=== PATIENT | male | born 1985 ===

== ENCOUNTER 2024-10-15 21:52 | Emergency (ER) | payer OTHER, SELFPAY ==
--- OUTSIDE RECORDS SUMMARY | 2024-10-11 12:10 | XMS_ITS | Encounter Summary ---
Author Organization [facility] Address [address] [place] [address] Care Team Providers Care Performance Consultant Name Role Phone Ezio Busby MD Primary Care Provider [phone] Reason for Visit * Reason Comments BACK PAIN Left lower back/ SI joint pain. No numbness or tinglingNo injury, has been bothersome for the past week Encounter Details Date Type Department Care Team (Late st Contact Info) Description 10/11/2024 12:10 PM CDT Office Visit [facility] [address] [facility] [address] [place], [place] [id number] Shan Stoddard, DO [address] [place] [address] Lumbar strain, initial encounter (Primary Dx); Chronic left-sided low back pain without sciatica Social History Tobacco Use Types Packs/Day Years Used Date Smoking Tobacco: Former Smokeless Tobacco: Former Comments:smoked one year in college Alcohol Use Standard Drinks/Week Comments Yes 3 (1 standard drink = 0.6 oz pur e alcohol) PHQ-2 Answer Date Recorded PHQ-2 Score 3 03/02/2024 Financial Resource Strain Answer Date R ecorded Is it hard for you to pay fo r the very basics like food, housing, medical care or heating? No 04/16/2023 Food Insecurity Answer Date Recorded Does your food run out before you have the money to buy more? No 04/16/2023 Transportation Needs Answer Date Record ed Does a lack of transportatio n keep you from your medical appointments or from getting your medications? 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 [employer] Not on file Not on fi le Not on file documented as of this encounter Last Filed Vital Signs Vital Sign Reading Time Taken Comments Blood Pressure - - Pulse - - Temperature 36.7 C (98.1 F) 10/11/2024 12:31 PM CDT Respiratory Rate - - Oxygen Saturation - - Inhaled Oxygen Concentration - - Weight 75.8 kg (167 lb) 10/11/2024 12:31 PM CDT Height 175.3 cm (5' 9) 10/11/2024 12:31 PM CDT Body Mass Index 24.66 10/11/2024 12:31 PM CDT documented in this encounter Patient Instructions * Patient Instructions* Alma Delia Spears, ATC - 10/11/2024 12:10 PM CDT Thank you for choosing [facility] for your health care visit today. Shan Stoddard, Imaging Project Manager Process Development: [facility] [place] [address]. Call to schedule. Medication Requests: Prescriptions are filled on Weekdays before 3:00PM For all medication refills: Request a refill using MyChart or contact your Pharmacy Paperwork Requests: FMLA or disability paperwork can be faxed to: [phone] Please allow 7-10 business days for completion of all paperwork. [facility] Worker's Compensation Services: E-mail Address: What is Know Your Cost? Know Your Cost is a service for patients and patient/members to call and receive personalized cost information and estimates across our care group. The phone number is (COST) Friday - Friday 8 AM to 5 PM To request copies of your medical records, call: [phone] (option 4) Diagnosis: Encounter Diagnosis Name Primary? Lumbar strain, initial encounter Yes Plan: Follow Up: As needed if symptoms are not improving or worsen. Medications: Over the Counter Medications: Acetaminophen (Tylenol) Ibuprofen (Motrin) taken per bottle instructions unless specified by physician. RICE: - Utilize ice over the injured area (ice bag or bag of frozen vegetables) several times per day for up to 20 minutes at a time. Be sure to place a cold wet wash cloth or towel between the ice and your skin. - Avoid activities that cause pain. - Heat If you have any questions regarding your visit or next steps, please contact us at [phone]. documented in this encounter Progress Notes * Shan Stoddard DO - 10/11/2024 12:10 PM CDT Acute Injury Clinic Progress Note Date of visit: 10/11/2024 Chief Complaint Chief Complaint Patient presents with BACK PAIN Left lower back/ SI joint pain. No numbness or tingling No injury, has been bothersome for the past week History of Present Illness Cristi Sher is a 39 y.o. male that presents today for evaluation of BACK PAIN (Left lower back/ SIjoint pain. No numbness or tingling/No injury, has been bothersome for the past week) Patient presents with left low back and SI joint pain for the past week. He does have a history of episodic lumbar back pain. Patient denies any numbness or tingling or any radiation of pain. The patient denies any new acute injury. Patient denies any bowel or bladder incontinence or any saddle anesthesia. PMHx, medications, allergies, reviewed in Epic. Exam Temp 36.7 ??C (98.1 ??F) (Oral) Ht 1.753 m (5' 9) Wt 75.8 kg (167 lb) BMI 24.66 kg/m?? General/ Constitutional: Well nourished, well developed, no apparent distress Respiratory: Normal respirations, no retractions Neurological: Oriented to person, place, and time Psychological: Normal mood and affect Musculoskeletal: Back Exam Tenderness The patient is experiencing tenderness in the sacroiliac and lumbar. Range of Motion The patient has normal back ROM. Muscle Strength The patient has normal back strength. Tests Straight leg raise left: negative Reflexes Patellar: normal Achilles: normal Other Toe walk: normal Heel walk: normal Sensation: normal Gait: normal Imaging No radiographs obtained today. Assessment/Plan 1. Lumbar strain, initial encounter - methylPREDNISolone (MEDROL 21 TABLET DOSEPACK) 4 MG tablet; Take as directed. Dispense: 21 Tablet; Refill: 0 2. Chronic left-sided low back pain without sciatica Acute exacerbation of chronic problem. Briefly, the patient is a 39-year-old male who presents withleft-sided lumbar back pain, acutely exacerbated in the past few weeks. He has no neurologic deficits on physical exam concerning for central spine lesion. We will give him a Medrol Dosepak and have him perform home exercises as he has done in the past. Follow up as needed or failure to improve. I have discussed the nature of his current subjective complaints, clinical examination, test results and have reviewed treatment options. Shan Stoddard DO [facility] Primary Care Sports Medicine [facility] Orth[facility] This note contains medical terminology which is meant for communication between health care physicians and providers. Please note that vocabulary/phrasing/abbreviations may not carry the same definitions as they would in normal conversational speech. Additionally voice recognition software was usedto generate this note. As a result, wrong word or '[id number]' substitutions may have occurred due to the inherent limitations of voice recognition software. There may be errors in the script that have gone undetected. Please consider this when interpreting information found in this chart. documented in this encounter Plan of Treatment Not on file documented as of this encounter Visit Diagnoses Diagnosis Lumbar strain, initial encounter- Primary Chronic left-sided low back pain without sciatica documented in this encounter Care Teams Performance Consultant Relationship Specialty [place] [id number] [place] [address] PCP - General Family Practice 04/02/22 documented as of this encounter
[2024-10-15 21:58] VITALS: BP 152/94; PULSE 94; RESP 18; TEMP 36.3; O2SAT 96; BMI 24.6
[2024-10-15 22:11] VITALS: O2SAT 96
--- NOTE | 2024-10-15 22:14 | CRLHL7_ITS ---
For Patients: As a result of the Cures Act, medical imaging exams and procedure reports are released immediately into your electronic medical record. You may view this report before your referring provider. If you have questions, please contact your health care provider. INDICATION: Cough, chills. TECHNIQUE: Chest 2 views. COMPARISON: None. FINDINGS: Cardiovascular and mediastinum: Heart size and vasculature are normal in caliber and appearance. Lungs and pleural spaces: Lungs are clear. No sign of infiltrate or mass. No sign of pleural effusion. No pneumothorax. Bones and soft tissues: No significant findings. IMPRESSION: No acute or significant findings. Dictated by Cesar Hubbard MD @ 10/15/2024 10:39:38 PM (Electronically Signed)
--- NOTE | 2024-10-15 22:24 | ED.GENADULT ---
HPI - General Adult General Date Seen: 10/15/24 Chief complaint: Unspecified Complaint, Adult Stated complaint: sweats Time Seen by Provider: 10/15/24 22:02 Source: patient Mode of arrival: ambulatory Limitations: no limitations History of Present Illness HPI narrative: Patient is a 39-year-old male presenting to emergency department for hypertension, diaphoresis. He states the past week he has been having some upper respiratory symptoms. Been having mild cough. Has not had any chest pain or shortness of breath. Initially had a sore throat which is somewhat there now but has improved. Initially was having some pain with swallowing but that has resolved. Has not noticed any swelling underneath his tongue. He started steroid yesterday for back pain and today he you start to have the changes in his blood pressure and the diaphoresis. Also checked his temperature and it was low. Due to all this he was concerned and came to the emergency department for evaluation. Denies having symptoms like this before. Has not had any sick contacts that he is aware of. Denies headache, vision changes, abdominal pain, nausea, weakness, numbness. Related Data Allergies Allergy/AdvReac Type Severity Reaction Status Date / Time No Known Drug Allergies Allergy Verified 10/15/24 22:02 Review of Systems Status of ROS: Reports: 10 or more systems reviewed and unremarkable except as noted in History and below PFSH [facility] Social History Smoking Status: Never smoker Non-prescribed substance use: denies use Exam Narrative: Exam Narrative: Const: Well-nourished, Well-developed, in no distress Eyes: PERRL, no conjunctival injection, and symmetrical lids HENT: Atraumatic external nose and ears. Moist mucous membranes. Uvula midline, no tonsillar exudate or swelling. No swelling underneath the tongue Neck: Symmetric, trachea midline, No thyromegaly. CVS: RRR, No murmurs or gallops. Peripheral pulses 2+ and equal in all extremities RESP: Unlabored respiratory effort. Clear to auscultation bilaterally. GI: Nontender/Nondistended, No rebound or guarding. MSK:Extremities w/o deformity, Normal Active ROM Skin: Warm, Dry. No rashes or lesions. Neuro: Normal Muscle tone, No focal neurological deficits. Psych: Awake, Alert, & Oriented x3. Appropriate mood and affect. Const: Vital Signs, click to edit/add: Vital Signs - 24 hr 10/15/24 21:58 10/15/24 23:10 Temperature 97.3 F L Pulse Rate [Left P ulse Oximeter] 94 82 Respiratory Rate 18 18 Blood Pressure [Ri ght Upper Arm] 152/94 H 140/99 H Pulse Oximetry 96 97 Oxygen Delivery Me thod Room Air Room Air Course Vital Signs Vital signs: Initial Vital Signs Temperature 97.3 F L 10/15/24 21:58 Temperature Source Temporal Artery Scan 10/15/24 21:58 Pulse Rate 94 10/15/24 21:58 Pulse Rhythm Regular 10/15/24 21:58 Respiratory Rate 18 10/15/24 21:58 Blood Pressure 152/94 H 10/15/24 21:58 Blood Pressure Mean 113 H 10/15/24 21:58 Blood Pressure Position Sitting 10/15/24 21:58 Pulse Oximetry 96 10/15/24 21:58 Oxygen Delivery Method Room Air 10/15/24 21:58 Vital Signs Temperature 97.3 F L 10/15/24 21:58 Pulse Rate 94 10/15/24 21:58 Respiratory Rate 18 10/15/24 21:58 Blood Pressure 152/94 H 10/15/24 21:58 Pulse Oximetry 96 10/15/24 21:58 Oxygen Delivery Method Room Air 10/15/24 21:58 Temperature 97.3 F L 10/15/24 21:58 Pulse Rate 82 10/15/24 23:10 Respiratory Rate 18 10/15/24 23:10 Blood Pressure 140/99 H 10/15/24 23:10 Pulse Oximetry 97 10/15/24 23:10 Oxygen Delivery Method Room Air 10/15/24 23:10 Medical Decision Making MDM Narrative Medical decision making narrative: Patient is a 39-year-old male presenting to the emergency department for diaphoresis and intermittent hypertension. His blood pressure slightly elevated right now but he appears overall well. Was having a sore throat earlier in the week that has improved. Patient is not showing signs of peritonsillar abscess, Jorge Alberto angina, retropharyngeal abscess,Lemierre disease or any other concerning oral pharynx or deep neck space abscesses. Imaging is not necessary. Will check him for strep, COVID/flu/RSV. Will also check some basic labs and do a chest x-ray since he had has had the recent viral symptoms. Chest x-ray reviewed by myself the radiologist shows no acute concerning abnormalities. Lab work shows no concerning findings. Viral swab is still pending at time of discharge. We will call with results of positive. He is agreeable to this plan. Symptoms may be all from a viral syndrome. Vital signs were stable throughout his time in the emergency department Lab Data Labs: Lab Results 10/15/24 Range/Units 22:22 WBC 11.56 H (4.50-11.00) K/uL RBC 5.06 (4.30-5.90) m/uL Hgb 15.6 (13.5-17.5) gm/dL Hct 44.3 (37.0-53.0) % MCV 88 (80-100) fL MCH 31 (26-34) pg MCHC 35 (32-36) gm/dL RDW Coeff of Rhoda 12.1 (11.5-15.5) % Plt Count 333 (140-440) K/uL Neut % (Auto) 64.8 (42.0-72.0) % Lymph % (Auto) 22.7 (20-44) % [place] % (Auto) 9.3 (0.0-11.0) % Eos % (Auto) 2.8 (0.0-7.0) % Baso % (Auto) 0.2 (0.0-3.0) % Neut # (Auto) 7.50 H (1.7-7.0) K/uL Lymph # (Auto) 2.60 (0.90-2.90) K/uL Dar[place] # (Auto) 1.10 H (0.00-0.90) K/UL Eos # (Auto) 0.30 (0.00-0.50) K/uL Baso # (Auto) 0.00 (0.00-0.30) K/uL Abs Immat Gran (auto) 0.00 (0.00-0.30) K/uL Imm/Tot Granulo (auto) 0.2 % Sodium 138 (135-149) mmol/L Potassium 4.0 (3.6-5.1) mmol/L Chloride 99 (96-114) mmol/L Carbon Dioxide 26 (20-32) mmol/L Anion Gap 13 (7-15) mEq/L BUN 15 (5-24) mg/dL Creatinine 1.2 (0.5-1.5) mg/dL Estimated Creat Clear 83.47 Estimated GFR 79 ml/min Glucose 101 (60-115) mg/dL Calcium 9.4 (8.4-10.6) mg/dL Group A Strep DNA NOT DETECTED (Not Detectd) Imaging Data Chest x-ray: Attestation: I have reviewed the pertinent imaging results. Radiologist's impression: No acute or significant findings. Dictated by Cesar Hubbard MD @ 10/15/2024 10:39:38 PM Discharge Plan Discharge Clinical Impression: Diaphoresis Patient Disposition: Home, Self-Care Condition: Stable Additional Instructions: I am not sure exactly what is causing your symptoms today. It could have been a viral syndrome. We do not see any concerning findings on your lab work or imaging. We will call you if your viral swabs are positive. Make sure to stay well hydrated Follow Up/Referrals: Provider,Not a Local [Primary Care Provider, Family Practice] Stand Alone Forms: [employer] Info Instructions
[2024-10-15 22:28] LABS: Basophils Percent Auto 0.2 % (0.0-3.0); Eosinophils Percent Auto 2.8 % (0.0-7.0); Hematocrit 44.3 % (37.0-53.0); Hemoglobin* 15.6 gm/dL (13.5-17.5); Immature Granulocytes Pct Auto 0.2 %; Lymphocytes Percent Auto 22.7 % (20-44); Mean Corpuscular HGB Conc 35 gm/dL (32-36); Mean Corpuscular Hemoglobin 31 pg (26-34); Mean Corpuscular Volume 88 fL (80-100); Monocytes Percent Auto 9.3 % (0.0-11.0); Neutrophils Percent Auto 64.8 % (42.0-72.0); Platelet Count* 333 K/uL (140-440); RDW Coefficient of Variation % 12.1 % (11.5-15.5); Red Blood Count 5.06 m/uL (4.30-5.90); White Blood Count* 11.56 K/uL (4.50-11.00)
[2024-10-15 22:32] LABS: Slide Review Reflex No
[2024-10-15 22:42] LABS: Chloride* 99 mmol/L (96-114); Sodium* 138 mmol/L (135-149)
[2024-10-15 22:45] LABS: Blood Urea Nitrogen* 15 mg/dL (5-24); Creatinine* 1.2 mg/dL (0.5-1.5); Est. Creatinine Clearance* 83.47; Estimated Glomerular Filt Rate 79 ml/min
[2024-10-15 22:46] LABS: Anion Gap 13 mEq/L (7-15); Calcium* 9.4 mg/dL (8.4-10.6); Carbon Dioxide* 26 mmol/L (20-32); Glucose* 101 mg/dL (60-115)
[2024-10-15 22:53] LABS: Strep A DNA Probe* NOT DETECTED (Not Detectd)
[2024-10-15 23:10] VITALS: BP 140/99; PULSE 82; RESP 18; O2SAT 97
--- OUTSIDE RECORDS SUMMARY | 2024-10-15 23:12 | XMS_ITS | Clinical Summary ---
Author Organization [facility] Address [address] [place] [id number] Care Team Providers Care Soaker Meat Name Role Phone Pcp, No Primary Care Provider Unavailabl e Allergies No known active allergies Medications No known medications Active Problems No known active problems Family History Relation Name Status Comments Father Alive Mother Alive Social History Tobacco Use Types Packs/Day Years Used Date Smoking Tobacco: Never Smokeless Tobacco: Never Alcohol Use Standard Drinks/Week Comments Yes 0 (1 standard drink = 0.6 oz pur e alcohol) occ Social Connections Answer Date Recorded Frequency of Communication with Friends and Fami ly Not on file 07/27/2023 Sex and Gender Information Value Date Recorded Sex Assigned at Not on file Legal Sex Male 9:56 AM CDT Gender Identity Not on file Sexual Orientation Not on file Obstetrics History Last Filed Vital Signs Vital Sign Reading Time Taken Comments Blood Pressure 164/100 08/27/2020 3:13 PM CDT Pulse 94 08/27/2020 3:13 PM CDT Temperature 36.7 C (98 F) 08/27/2020 3:13 PM CDT Respiratory Rate 16 08/27/2020 3:13 PM CDT Oxygen Saturation 99% 08/27/2020 3:13 PM CDT Inhaled Oxygen Concentration - - Weight 74.8 kg (165 lb) 08/27/2020 3:13 PM CDT Height 175.3 cm (5' 9) 08/27/2020 3:13 PM CDT Body Mass Index 24.37 08/27/2020 3:13 PM CDT Plan of Treatment Health Maintenance Due Date Last Done Comments Tdap 1997 Depression screening for age 12+ 1998 HIV for age 15-65 2001 BMI (ht and wt on same day) for age 18+ 02/17/2004 Hepatitis C screening for ag e 18-79 02/17/2004 Hepatitis B series for 19+ ( 1 of 3 - 19+ 3-dose series) 2005 Tetanus booster 2006 Lipids for age 35-44 2021 COVID-19 vaccine series (3 - 2023- season) 2023 03/07/2023, 02/26/2021 Influenza Vaccine (Season Ended) 2024 Pneumococcal series for age 6-49 Aged Out No longer eligible b ased on patient's age to complete this topic Insurance [id number] [employer] Care Teams Soaker Meat Relationship Specialty Start Date End Date Pcp, No . PCP - General 09/28/14
--- OUTSIDE RECORDS SUMMARY | 2024-10-15 23:12 | XMS_ITS | Encounter Summary ---
Author Organization [facility] Address [address] [address] Care Team Providers Care Classified Ad Taker Name Role Phone Ezio Busby MD Primary Care Provider [phone] Reason for Visit * Reason Comments SWEATING,EXCESSIVE BLOOD PRESSURE CHECK STUFFED UP, STUFFINESS, NOSE BODY ACHES Encounter Details Date Type Department Care Team (Late st Contact Info) Description 10/15/2024 Nurse Triage Careline [address] [facility]. [place], [place] [id number] Unknown, Physician [address] [place] [address] SWEATING,EXCESSIVE; BLOOD PRESSURE CHECK; STUFFED UP, STUFFINESS, NOSE; BODY ACHES Social History Tobacco Use Types Packs/Day Years [...] on file documented as of this encounter Nursing Notes * Cher Guzman RN - 10/15/2024 8:58 PM CDT Situation/Background (brief explanation of current symptoms/situation): Patient states, I've had cold sweats for the last 4 hours, Dariela had an elevated HR for the most of the day 100-110, taking methylprednisolone (lower back pain SI joint) along with a antidepressants, cold medication and ADHD meds Checking HR and BP for the past 20 minutes last was 148/100 148/96 HR 107-110. No fever. 94-95 degree, forehead thermometer AR. Reports no shortness of breath, no palpatations, general off feeling. Reviewed pertinent medical history (as relates to the call): Yes Reviewed pertinent medications (as relates to the call): Yes Reason for Disposition Systolic BP >= 160 OR Diastolic >= 100 Upgraded to ED now disposition due to complex combination of symptoms. Protocols used: Blood Pressure - [id number] Plan: Plans to go to ED now. Complex situation with a large amount of medications and range of symptoms. Patient agrees ED now is a good plan for a more through assessment. Patient/caller agrees with plan. Patient/caller verbalizes understanding and has no further questions at this time. Advised patient/caller to call back CareLine if there are further questions or concerns. The CareLine is available 11/11. Cher Day RN Careline 9:04 PM 10/15/2024 * Raven Hernandez - 10/15/2024 8:53 PM CDT Verified patient identity using three identifiers: Yes Caller's relationship to patient: Self, Do you have a provider/clinic where you are seen for this? PN Are you calling about a related concern: No What is your question or concern Sweats, BP 148 over 96, pulse 108, stuffy nose, body aches If patient is reporting symptoms, are any of the symptoms the patient is describing on the Red FlagList? Yes: Plan- Warm transferred caller to CareLine RN. Route to CareLine Call Waiting pool. documented in this encounter Plan of Treatment Not on file documented as of this encounter Visit Diagnoses Not on filedocumented in this encounter Care Teams Classified Ad Taker Relationship Specialty [place] [address] [place] [address] PCP - General Family Practice 04/02/22 documented as of this encounter
--- OUTSIDE RECORDS SUMMARY | 2024-10-15 23:12 | XMS_ITS | Encounter Summary ---
Author Organization [facility] [employer] Address [address] [place] [address] Care Team Providers Care Gritting Machine Operator Name Role Phone Ezio Busby MD Primary Care Provider [phone] Encounter Details Date Type Department Care Team (Late st Contact Info) Description 11/12/2010 Scanned History External to Transferred Record, Provider [facility] Social History Tobacco Use Types Packs/Day Years Used Date Smoking Tobacco: Never Assessed Sex and Gender Information Value Date Recorded Sex Assigned at Not on file Legal Sex Male 7:03 PM CDT Gender Identity Not on file Sexual Orientation Not on file documented as of this encounter Plan of Treatment Not on file documented as of this encounter Visit Diagnoses Not on filedocumented in this encounter Care Teams Gritting Machine Operator Relationship Specialty [place] [address] [place] [address] PCP - General Family Practice 04/02/22 documented as of this encounter
--- OUTSIDE RECORDS SUMMARY | 2024-10-15 23:12 | XMS_ITS | Clinical Summary ---
Author Organization [facility] Address [address] [place] [address] Care Team Providers Care Technical Specialist Cytogenetics Name Role Phone Ezio Busby MD Primary Care Provider [phone] Source Comments You are receiving this document as you are listed as the primary care provider,follow-up provider, or the patient has been referred to you for consultation.This is in compliance with the Medicare and[facility] Incentive [facility],which states Providers who transition their patient to another setting of careor provider of care or refers their patient to another provider of care shouldprovide summary care record for each transition of care or referral. [facility] Allergies No known active allergies Medications amphetamine-dextr oamphetamine XR (ADDERALL XR) 20 MG 24 hour release capsuleIndication s:ADHD (attention deficit hyperactivity disorder), inattentive type (HRC) Take 1 Capsule (20 mg) by mouth daily for 30 days. 2 of 3 Do not start before January 25, 2024. 30 Capsule 4 Active amphetamine-dextr oamphetamine XR (ADDERALL XR) 20 MG 24 hour release capsuleIndication s:ADHD (attention deficit hyperactivity disorder), inattentive type (HRC) Take 1 Capsule (20 mg) by mouth daily for 30 days. 3 of 3 Do not start before February 24, 2024. 30 Capsule 4 Active escitalopram (LEXAPRO) 10 MG tabletIndications :Anxiety (HRC) Take 1 Tablet (10 mg) by mouth daily. 90 Tablet 3 4 Active Additional Information Patient not taking.Reported on 10/11/2024 buPROPion (WELLBUTRIN XL) 150 MG 24 hour release tabletIndications :Other specified depressive episodes Take 1 Tablet (150 mg) by mouth daily. 90 Tablet 3 4 025 Active Additional Information Patient taking differently: 300 mgOral DAILY, Reported on 10/11/2024 amphetamine-dextr oamphetamine XR (ADDERALL XR) 20 MG 24 hour release capsuleIndication s:ADHD (attention deficit hyperactivity disorder), inattentive type (HRC) Take 1 Capsule (20 mg) by mouth daily for 30 days. 1 of 3 Do not start before March 11, 2024. 30 Capsule 4 Active amphetamine-dextr oamphetamine XR (ADDERALL XR) 20 MG 24 hour release capsuleIndication s:ADHD (attention deficit hyperactivity disorder), inattentive type (HRC) Take 1 Capsule (20 mg) by mouth daily for 30 days. 2 of 3 Do not start before April 09, 2024. 30 Capsule 4 Active amphetamine-dextr oamphetamine XR (ADDERALL XR) 20 MG 24 hour release capsuleIndication s:ADHD (attention deficit hyperactivity disorder), inattentive type (HRC) Take 1 Capsule (20 mg) by mouth daily for 30 days. 3 of 3 Do not start before May 08, 2024. 30 Capsule 5 Active lisdexamfetamine (VYVANSE) 30 MG capsule Take by mouth. 5 Active guanFACINE ER (INTUNIV) 1 MG TB24 24 hour release tablet Take 1 Tablet (1 mg) by mouth daily. 5 Active gabapentin (NEURONTIN) 100 MG capsule Take 1 Capsule (100 mg) by mouth three times a day. 5 Active methylPREDNISolon e (MEDROL 21 TABLET DOSEPACK) 4 MG tabletIndications :Lumbar strain, initial encounter Take as directed. 21 Tablet 5 Active Active Problems Problem Noted Date Diagnosed Date Controlled substance agreement signed 04/17/2023 Other specified depressive episodes 04/10/2023 White coat syndrome without hypertension 018 Migraine with aura and witho ut status migrainosus, not intractable 12/01/2015 Overview (12/01/2015): 3-4 times per month ADHD (attention deficit hype ractivity disorder), inattentive type 12/01/2015 Overview (12/01/2015): Dx in [place] as child. Treated throught school years. Has had good response to Wellbutrin as college student. Stimulants are not effective for him. Encounters Date Type Department Care Team Description 10/15/2024 Nurse Triage Careline [address] [place] [address] Unknown, Physician SWEATING,EXCESSIVE; BLOOD PRESSURE CHECK; STUFFED UP, STUFFINESS, NOSE; BODY ACHES 10/11/2024 12:10 PM CDT Office Visit [facility] [address] [facility] [address] [place] [address] Shan Stoddard, Lumbar strain, initial encounter (Primary Dx); Chronic left-sided low back pain without sciatica from Last 3 Months Immunizations Immunization Administration Dates Next Due Influenza (Flucelvax) 12/21/2021 Influenza (Flucelvax), Preserv Free QIV 03/07/20 23 Influenza IIV4 (Quadrivalent) 0.5mL (40908) 11/2020 Influenza ccIIV3 6 months+ (Flucelvax) Moderna Monovalent 12+ 06/15/2020,05/19/2020 Pfizer COVID-19 12+ 03/02/2024,03/07/2023 Pfizer Monovalent 12+ Purple Top 02/26/2021 Tdap 12/01/2015 Family History Medical History Relation Name Comments Hyperlipidemia Father Myastenia Gravis Father Anxiety Mother Migraines Mother Migraines Brother Relation Name Status Comments Father Mother Brother Social History Tobacco Use Types Packs/Day Years Used Date Smoking Tobacco: Former Smokeless Tobacco: Former Tobacco Cessation:Counseling Given: Not Answered Comments:smoked one year in college Alcohol Use [...] Not on fi le Not on file Last Filed Vital Signs Vital Sign Reading Time Taken Comments Blood Pressure 132/87 03/02/2024 4:38 PM P[facility]LTRY [facility]IMMER 1- 141/81 2- 123/92 Pulse 68 03/02/2024 4:38 PM [facility] Temperature 36.7 C (98.1 F) 10/11/2024 12:31 PM CDT Respiratory Rate 16 08/23/2022 11:0 9 AM CDT Oxygen Saturation 100% 08/23/2022 11: 09 AM CDT Inhaled Oxygen Concentration - - Weight 75.8 kg (167 lb) 10/11/2024 12:3 1 PM CDT Height 175.3 cm (5' 9) 10/11/2024 12:3 1 PM CDT Body Mass Index 24.66 10/11/2024 12:31 PM CDT Plan of Treatment Health Maintenance Due Date Last Done Comments Hep C Screening (Preventive Services) 1986 HepB Vaccine (1) 2005 DTaP/Tdap/Td Vaccine (2 - Tdap) 11/30/2025 12/01/2015 Adult Preventive Visit 03/02/2026 , 04/17/2023, 04/02/2022, Additional history exists Cholesterol 04/29/2028 04/29/2023, 11/0 04/2021 (Completed), 04/19/2016 Zoster/Shingles Vaccine (1 of 2) 02/17/2036 HIV Screening (Preventive Services) Completed 07/25/2017 COVID-19 Vaccine Completed 03/02/2024, , 02/26/2021, Additional history exists Influenza Vaccine Completed 03/02/2024, , 12/21/2021, Additional history exists HPV Vaccine Aged Out No longer eligi ble based on patient's age to complete this topic HepA Vaccine Aged Out No longer eligi ble based on patient's age to complete this topic Hib Vaccine Aged Out No longer eligi ble based on patient's age to complete this topic IPV (Polio) Vaccine Aged Out No longe r eligible based on patient's age to complete this topic MCV4 Vaccine Aged Out No longer eligi ble based on patient's age to complete this topic Meningococcal B Vaccine Aged Out No l onger eligible based on patient's age to complete this topic Pneumococcal Vaccine Aged Out No long er eligible based on patient's age to complete this topic Procedures Procedure Name Priority Date/Time Associated Diagnosis Comments LIPID PANEL & DIRECT LDL (IF NEEDED) Routine 04/29/2023 7:14 AM POULTRY TRIMMER Lipid screening HIV 1/2 AG/AB 4TH GEN Routine 07/25/2017 2:45 PM CDT Screening for human immunodeficiency virus from Last 3 Months or Most Recently Relevant to Health Maintenance Results * (ABNORMAL) Lipid Panel & Direct LDL (if Needed) (04/29/2023 7:14 AM POULTRY TRIMMER) Cholesterol 187 0 - 199 mg/dL 04/29/2023 9:39 AM [facility] Triglyceride 87 <=149 mg/dL 04/29/2023 9:39 AM [facility] HDL Cholesterol 38(L) >=40 mg/dL 9:39 AM [facility] LDL, Calculated 132(H) <130 mg/dL 9:39 AM [facility] Non HDL Chol, Calculated 149 <=159 mg/dL 04/29/2023 9:39 AM [facility] Cholesterol/HDL Ratio 4.9 <=5.0 04/29/2023 9:39 AM [facility] Hours Fasting 13.0 8 - 12 Hours 04/29/2023 9:39 AM [facility] Blood Venipuncture / Unknown 04/29/2023 7:14 AM POULTRY TRIMMER 04/29/2023 7:14 AM POULTRY TRIMMER us Ezio Busby MD LAB_1 Final Result [facility] [address] [place] [address], [facility] [phone] * HIV 1/2 Ag/Ab 4th Generation (07/25/2017 2:45 PM CDT) [facility] HIV 1/2 AG/AB 4thGEN Negative (Non Reactive) [facility] Comment:HIV-1 p24 Ag and HIV -1/HIV-2 Ab not detected. 07/25/2017 2:45 PM CDT 07/25/2017 2:46 PM CDT Narrative [facility] - 07/25/2017 6:37 PM CDT Performed at [facility], [address] [place] [phone] us Evgeny Gomez MD LAB_1 Final Resu lt [facility] [phone] from Last 3 Months or Most Recently Relevant to Health Maintenance Insurance [facility] [employer] [place] [id number] Care Teams Technical Specialist Cytogenetics Relationship Specialty [place] [address] [place] [id number] PCP - General Family Practice 04/02/22
[2024-10-16 00:10] LABS: PCR FLU A Negative PCR FLU A (Negative); PCR FLU B Negative PCR FLU B (Negative); PCR RSV Negative PCR RSV (Negative); SARS PCR* Negative SARS-CoV-2 (Negative)
== END 2024-10-15 23:57 | disposition home or self-care (01) ==
PROVIDERS: Emergency Provider Student in an Organized Health Care Education/Training Program
DX: R61 Generalized hyperhidrosis (principal)
CPT/HCPCS: 36415; 71046; 80048; 85025; 87631; 87651; 99283